=== PATIENT | female | born 1980 | race African-American/Black ===

== ENCOUNTER → 2017-04-11 | Day surgery (SDC) | payer OTHER ==
[~2017-04-11] VITALS: Ht 162.6 cm; Wt 68.0 kg
--- NOTE | 2017-04-11 11:00 | Operative Report ---
Operative/Inv Procedure Report Surgery Date: 04/11/17 Name of Procedure: Bilateral reduction mammoplasty Pre-Operative Diagnosis: Bilateral breast hypertrophy Post-Operative Diagnosis: Same Estimated Blood Loss: scant (200) Surgeon/Flat Lock Operator: MIKE VAZQUEZ MD Anesthesia: general endotracheal tube Operative/Procedure Note Note: Patient was counseled regarding the procedure the alternatives the risks and the expected outcomes related to request for surgical intervention to treat symptomatic macromastia. She was given a SPS informed consent was she will return sign has no further questions regarding. She was marked in the standing position for an inferior pedicle Negron pattern technique. No guarantees are given in regards to cup size. The patient would like to be on the smaller side. She was brought to the operating room placed supine on the table Venodyne boots are placed and then general anesthesia was established. Intravenous antibiotics were given. Chest reprepped and draped in usual sterile fashion. Inferior pedicle was de-epithelialized and segments were removed both superior laterally and medially from the bilateral breasts. She was put in the sitting position for the nipple areolar complexes were marked. Resected specimens were approximately the same week. 3 layer closure was carried out of all the wounds. Ends dictation
== END ==
LOC: STS 01:43
DX: N62 Hypertrophy of breast (principal); M54.9 Dorsalgia, unspecified; E78.5 Hyperlipidemia, unspecified
CPT/HCPCS: 81025; J0131; J0690; J1100; J2250; J2405